=== PATIENT | male | born 2000 | race Caucasian/White ===

== ENCOUNTER 2022-01-29 21:39 | Emergency (ER) | payer OTHER, MEDICAID ==
[~2022-01-29] VITALS: Ht 193 cm; Wt 83.5 kg
[2022-01-29 21:40] VITALS: BP 138/80
--- NOTE | 2022-01-29 21:49 | NUR ---
PT BIBA BLS ER BED 6
--- NOTE | 2022-01-29 21:56 | NUR ---
ERMD EXAMINING PT
[2022-01-29] MEDS ORDERED: LORazepam 1 MG TAB PO ONE (22:05)
[2022-01-29 22:38] VITALS: BP 121/78
--- NOTE | 2022-01-29 22:38 | NUR ---
Patient discharged with v/s stable. Written and verbal after care instructions given and explained. Patient verbalized understanding. Ambulatory with steady gait. All questions addressed prior to discharge. Advised to follow up with PMD.
== END 2022-01-29 22:35 | disposition home or self-care (01) ==
LOC: MED 21:39
DX: F43.20 Adjustment disorder, unspecified (principal)
CPT/HCPCS: 99283